=== PATIENT | female | born 1980 | race Caucasian/White ===

== ENCOUNTER → 2017-03-20 | Outpatient (REF) | payer OTHER | LOC: M SFHCLERA 13:57 | PROVIDERS: ATTEND Nurse Practitioner Family | DX: J02.9 Acute pharyngitis, unspecified (principal) ==

== ENCOUNTER → 2018-08-31 | Outpatient (REF) | payer OTHER ==
[2018-08-31 14:15] LABS: HEMOGLOBIN A1c 4.9 %
[2018-08-31 14:32] LABS: FERRITIN 22 NG/ML (8-252); FOLATE > 24.0 NG/ML; FREE T3 3.6 PG/ML (2.2-4.0); FREE T4 1.11 NG/DL (0.76-1.46); IRON (FE) 155 UG/DL (50-170); PERCENT SATURATION 34.5 % (13.2-45.0); RHEUMATOID FACTOR QUANT < 10.0 IU/ML (<15.0); TOTAL 25(OH) VITAMIN D 14.1 NG/ML (30.0-100.0); TOTAL IRON BINDING CAPACITY 449 UG/DL (250-450); VITAMIN B12 LEVEL 809 PG/ML
[2018-09-02 00:08] LABS: ANTINUCLEAR ANTIBODIES DIRECT Negative (Negative); Lyme Disease IgG/IgM Antibodie <0.91 ISR (0.00-0.90); Lyme Disease IgM Ab Quantitati <0.80 index (0.00-0.79)
[2018-09-03 10:48] LABS: VITAMIN E(GAMMA TOCOPHEROL) 1.3 mg/L (0.7-4.9)
== END ==
LOC: M LABNEURO 09:35
PROVIDERS: ATTEND Psychiatry & Neurology Neurology
DX: Z11.9 Encounter for screening for infectious and parasitic diseases, unspecified (principal); E11.9 Type 2 diabetes mellitus without complications; E07.9 Disorder of thyroid, unspecified; D50.9 Iron deficiency anemia, unspecified